=== PATIENT | male | born 1960 | race Two or more races ===

== ENCOUNTER 2018-12-27 07:24 | Emergency (ER) | payer OTHER ==
[~2018-12-27] VITALS: Ht 170.2 cm; Wt 91.2 kg
== END 2018-12-27 10:50 | disposition home or self-care (01) ==
LOC: ER 07:24
DX: K29.70 Gastritis, unspecified, without bleeding (principal)

== ENCOUNTER 2019-02-02 08:42 | Outpatient (CLI) | payer OTHER | END 2019-02-02 08:45 | disposition home or self-care (01) | LOC: SONOGRAMA 08:42 → MAMO-SONO 09:15 | DX: R10.11 Right upper quadrant pain (principal) ==

== ENCOUNTER 2021-12-15 10:00 | Emergency (ER) | payer OTHER ==
[~2021-12-15] VITALS: Ht 170.2 cm; Wt 88.5 kg
[2021-12-15] MEDS ORDERED: TERAZOSIN HCL1 M1 (10:18)
[2021-12-15] MEDS ORDERED: KETO10TA2 PO (12:11)
== END 2021-12-15 12:26 | disposition home or self-care (01) ==
LOC: ER 10:00
DX: M25.511 Pain in right shoulder (principal); I10 Essential (primary) hypertension; M75.31 Calcific tendinitis of right shoulder

== ENCOUNTER 2022-05-11 10:49 | Emergency (ER) | payer OTHER ==
[~2022-05-11] VITALS: Ht 170.2 cm; Wt 85.7 kg
[~2022-05-11 10:49] MED LIST: KETO10TA2 PO; TERAZOSIN HCL1 M1
[2022-05-11] MEDS ORDERED: ROSUVASTATIN CAL5 MG PO (11:01)
[2022-05-11] MEDS ORDERED: NAPROXEN SODIU550 MG PO (11:01)
[2022-05-11] MEDS ORDERED: PANTOPRAZOLE SO40 MG PO (11:01)
[2022-05-11] MEDS ORDERED: TERAZOSIN HCL1 M1 PO (11:03)
== END 2022-05-11 13:07 | disposition home or self-care (01) ==
LOC: ER 10:49
DX: M54.89 Other dorsalgia (principal)

== ENCOUNTER 2024-04-20 07:32 | Day surgery (SDC) | payer OTHER ==
[2024-04-17 09:35] LABS: URINE APPEARANCE Clear; URINE BILIRRUBIN Negative (NEGATIVE); URINE BLOOD Small; URINE COLOR Yellow; URINE GLUCOSE Negative (NEGATIVE); URINE KETONE Negative (NEGATIVE); URINE LEUKOCYTE Negative; URINE NITRATE Negative; URINE PROTEIN Negative (NEGATIVE); URINE UROBILINOGEN 0.2 E.U./dl
[2024-04-17 09:39] LABS: URINE BACTERIA 13.8 uL (0.0-1933); URINE RBC 5.3 uL (0.0-20.8)
[2024-04-17 10:21] LABS: ALBUMIN 4.1 gm/dL (3.4-5.0); BILIRUBIN TOTAL 0.51 mg/dL (0.3-1.2); CALCIUM 9.4 mg/dL (8.5-10.1); CREATININE SERUM 0.81 mg/dL (0.70-1.30); GFR 96.24; GLOBULINA 3.9 G/DL (2.4-3.5); POTASSIUM 5.42 mEq/L (3.5-5.1)
[2024-04-17 10:25] LABS: HEMATOCRIT 44.9 % (39.0-48.0); HEMOGLOBIN 15.2 g/dL (13-16.00); MEAN CELL VOLUME 89.4 fL (80.0-100.00); MEAN CORPUSCULAR HEMOGLOBIN 30.3 pg (27.00-32.0); MEAN CORPUSCULAR HGB CONC 33.9 g/dl (32.0-36.0); PLATELET COUNT 183 K/uL (150-450); RED BLOOD COUNT 5.02 M/uL (4.00-6.00); RED CELL DISTRIBUTION WIDTH 13.3 % (11.5-14.5)
[2024-04-17 10:30] LABS: PROTHROMBIN TIME 10.9 SECONDS (9.0-11.5)
[~2024-04-20 07:32] MED LIST changes: +NAPROXEN SODIU550 MG PO; +PANTOPRAZOLE SO40 MG PO; +ROSUVASTATIN CAL5 MG PO; +TERAZOSIN HCL1 M1 PO
[2024-04-20] MEDS ORDERED: CEFAZOLIN SODIUM 1,000 MG VIAL ONE (09:54)
[2024-04-20] MEDS ORDERED: BUPIVACAINE HCL/MPF 0.5% 30ML VIAL ONE (11:30)
== END 2024-04-20 15:50 | disposition home or self-care (01) ==
LOC: CIR.AMB 07:32
PROVIDERS: ATTEND Orthopaedic Surgery
DX: M24.821 Other specific joint derangements of right elbow, not elsewhere classified (principal); M67.931 Unspecified disorder of synovium and tendon, right forearm; M77.11 Lateral epicondylitis, right elbow; F41.9 Anxiety disorder, unspecified; M19.90 Unspecified osteoarthritis, unspecified site

== ENCOUNTER 2024-09-02 13:35 | Emergency (ER) | payer OTHER ==
[~2024-09-02] VITALS: Ht 170.2 cm; Wt 85.7 kg
[2024-09-02] MEDS ORDERED: TERAZOSIN HCL10 MG PO (14:31)
[2024-09-02] MEDS ORDERED: AVAPRO75 MG PO (14:32)
[2024-09-02] MEDS ORDERED: KETOROLAC TROMETHAMINE 30 MG VIAL IM ONE (16:00)
[2024-09-02] MEDS ORDERED: DEXAMETHASONE SODIUM PHOSPHATE 4 MG/ML VIAL IM ONE (16:00)
[2024-09-02] MEDS ORDERED: TRAMADOL HCL 50 MG TABLET PO ONE ×2 (16:00)
[2024-09-02] MEDS ORDERED: ORPHENADRINE CITRATE 30 MG/ML AMPUL IM ONE (16:00)
[2024-09-02] MEDS ORDERED: DEXAMETHASONE SODIUM PHOSPHATE 4 MG/ML VIAL ONE (17:23)
[2024-09-02] MEDS ORDERED: KETOROLAC TROMETHAMINE 30 MG VIAL ONE (17:23)
[2024-09-02] MEDS ORDERED: ORPHENADRINE CITRATE 30 MG/ML AMPUL ONE (17:23)
[2024-09-02 18:38] LABS: HEMOGLOBIN 14.4 g/dL (13-16.00); MEAN CELL VOLUME 87.3 fL (80.0-100.00); MEAN CORPUSCULAR HEMOGLOBIN 29.9 pg (27.00-32.0); MEAN CORPUSCULAR HGB CONC 34.2 g/dl (32.0-36.0); PLATELET COUNT 175 K/uL (150-450); RED BLOOD COUNT 4.81 M/uL (4.00-6.00); RED CELL DISTRIBUTION WIDTH 13.1 % (11.5-14.5)
[2024-09-02 18:42] LABS: CREATININE SERUM 0.8 mg/dL (0.70-1.30); GFR 97.63; POTASSIUM 4.08 mEq/L (3.5-5.1)
== END 2024-09-02 18:59 | disposition home or self-care (01) ==
LOC: ER 13:37
PROVIDERS: General Practice
DX: M54.42 Lumbago with sciatica, left side (principal)

== ENCOUNTER 2025-07-30 07:46 | Outpatient (CLI) | payer OTHER ==
[~2025-07-30 07:46] MED LIST changes: +AVAPRO75 MG PO; +TERAZOSIN HCL10 MG PO
== END 2025-07-30 07:49 | disposition home or self-care (01) ==
LOC: SONOGRAMA 07:46
DX: R97.20 Elevated prostate specific antigen [PSA] (principal); C61 Malignant neoplasm of prostate